=== PATIENT | female | born 1945 | race Caucasian/White ===

== ENCOUNTER → 2016-09-03 | Day surgery (SDC) | payer MEDICARE, OTHER ==
[~2016-09-03] VITALS: Ht 157.5 cm; Wt 58.1 kg
[~2016-09-03] MED LIST: *morphine SULFATE 8 MG/ML PERIprocedure ONLY ONE; AMLO10TA2 PO; ARTIFICIAL TEARS OPTH OINT 3.5 APPLIC/3.5 GM TUBO ONE; ATROPINE SULFATE 1% OPHT SOLN 2 ML BTL ONE; BALANCED SALT SOLN OPHT IRRIG 15 ML BTL ONE; CHLORHEXIDINE GLUCONATE 2 % 1 PACK (2 CLOTHS) TOPICAL SCH; DEXAMETHASONE SOD PHOS 4 MG/ML VIAL ONE; EPINEPHrine HCL (1:1000) 1 MG/ML VIAL ONE; FAMOTIDINE 20 MG/2 ML VIAL ONE; INSULIN HUMAN REGULAR 1,000 UNITS/10 ML VIAL SQ PRN; LACTATED RINGER'S 1000 ML IV SCH; LOSA100T PO; METOPROLOL TARTRATE 25 MG TAB PO PRN; MIDAZOLAM HCL 2 MG/2 ML VIAL ONE; PHENYLEPH/NS 1000 MCG/10 ML SYR IV ONE; POVIDONE IODINE 5% (ANTISEPSIS KIT) 4 APPLICATIONS EACH NARE SCH; PROPOFOL 200 MG/20 ML AMP IV ONE; SODIUM CHLORID 0.9% 500 ML IV SCH; STERILE WATER FOR INJ 20 ML VIAL ONE; TOBRAMYCIN/DEXAMETHASONE OPTH OINT 3.5 GM TUBE ONE; TRIAMCINOLONE ACETONIDE/PF 40 MG/ML OPTH VIAL ONE; ceFAZolin INJ 1,000 MG VIAL ONE
[2016-09-03 09:42] VITALS: BP 125/66; PULSE 72; RESP 16; TEMP 98; O2SAT 97
[2016-09-03 11:35] LABS: AUTOMATED NEUTROPHIL # 3.1 TH/MM3 (1.8-7.7); HEMATOCRIT 39.6 % (35.0-46.0); HEMO FLAGS DIFF FINAL; LYMPH % 23.4 % (9.0-44.0); LYMPHOCYTE # 1.1 TH/MM3 (1.0-4.8); MEAN CELL VOLUME 103.5 FL (80.0-100.0); MEAN CORPUSCULAR HEMOGLOBIN 35.1 PG (27.0-34.0); MEAN CORPUSCULAR HGB CONC 33.9 % (32.0-36.0); MONO % 9.4 % (0.0-8.0); NEUT % 65.2 % (16.0-70.0); PLATELET COUNT 249 TH/MM3 (150-450); RED BLOOD COUNT 3.82 MIL/MM3 (4.00-5.30); RED CELL DISTRIBUTION WIDTH 13.1 % (11.6-17.2); WHITE BLOOD COUNT 4.8 TH/MM3 (4.0-11.0)
[2016-09-03] MEDS: CYCLOPENTOLATE HCL 1% OPHT SOLN 2 ML BTL LEFT EYE SCH ×4 (12:43→13:30)
[2016-09-03] MEDS: PHENYLEPHRINE HCL 2.5% OPTH SOLN 2 ML BTL LEFT EYE SCH ×4 (12:44→13:30)
[2016-09-03] MEDS: TROPICAMIDE 1% OPTH SOLN 2 ML BTL LEFT EYE SCH ×4 (12:45→13:30)
[2016-09-03] MEDS: ATROPINE SULFATE 1% OPHT SOLN 5 ML BTL LEFT EYE SCH ×4 (12:46→13:30)
--- NOTE | 2016-09-03 13:43 | EKG ---
Date Performed: 09/03/2016 Time Performed: 10:01:01 PTAGE: 71 years EKG: Sinus rhythm POSSIBLE LEFT ATRIAL ENLARGEMENT BORDERLINE LEFT AXIS DEVIATION INCOMPLETE RIGHT BUNDLE BRANCH BLOCK BORDERLINE ECG NO PREVIOUS TRACING DOCTOR: Wu Sauceda Interpretating Date/Time 09/03/2016 13:42:22
[2016-09-03 17:00] VITALS: BP 145/79; PULSE 75; RESP 16; TEMP 98; O2SAT 99
--- NOTE | 2016-09-07 09:05 | MP ---
cc: SHANIQUE SPARROW MD DATE OF SURGERY 09/03/2016 PREOPERATIVE DIAGNOSIS Rhegmatogenous retinal detachment left eye. POSTOPERATIVE DIAGNOSIS Rhegmatogenous retinal detachment left eye. PROCEDURE Trans pars plana vitrectomy with endolaser photocoagulation and air-fluid exchange, left eye. SURGEON Dr. Grace Sparrow ANESTHESIA General laryngeal mask anesthesia. INDICATIONS Ms. 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 She initially underwent an attempt at a pneumatic retinopexy with a gas ____ injected in the office. However, that failed and her detachment progressed further down the temporal side of the periphery. It was decided that she should undergo vitrectomy gas fluid exchange, laser photocoagulation and she wished to proceed. Informed consent was obtained including the fact that a vitrectomy and gas bubble may accelerate her cataract formation. She was brought to [facility] operating room one and placed on the operating table. Appropriate anesthesia monitoring devices were applied and she was placed under general anesthesia using the laryngeal mask. The left eye was identified as the operative site and then prepped and draped in the usual sterile fashion. A lid speculum was placed. The microscope was brought around and adjusted. At this time, an appropriate time-out was called with the surgical team agreeing to the surgical site and planned procedure. Using the Regan 23-gauge vitrectomy system, the trocar cannulas were placed 4 mm posterior to the limbus. The first one was placed at approximately 3:15 o'clock after first displacing the conjunctiva and with a beveled entrance. Once verified in the posterior chamber, an infusion cannula was affixed to it and was turned on. Two additional trocar cannulas were placed in similar fashion at 10 and 2 o'clock. Using the Endoilluminator light pipe and vitrectomy cutter and the BIOM wide-angle viewing system, a core and peripheral vitrectomy was carried out. Traction on the lattice and retinal break at about 12:30 to 1 o'clock was relieved. The retina was then flattened under Perfluoron and laser photocoagulation was placed between approximately 12 o'clock down around to 7:30 to 8 o'clock. A total of 1546 laser spots were placed using both the endolaser probe with a power of 200 milliwatts and 0.1-second exposure and the laser indirect delivery system with a power of 400 milliwatts and 0.15-second exposure. The Perfluoron was then exchanged for air. The air was then exchanged for a 24% mixture of SF6. The trocar cannulas were then removed one by one with tamponade of the site with a cotton swab leaving the eye formed with good pressure and no visible air leaks. Diathermy was done to the conjunctival wound overlying the sclerostomies. Atropine drops were placed on the cornea followed by subconjunctival actions of Ancef 2 mg in 0.5 ml and Ancef 125 mg in 0.5 ml. Kid speculum was removed. The patient was undraped. TobraDex ointment was placed on the cornea and the left eye was patched and shielded. The patient had the laryngeal mass removed in the room and was returned to recovery in good condition laying on her right side. When awake and alert, she will be asked to position face-down. MD FITO Olvera/ /3:53 PM /9:04 AM
== END | disposition home or self-care (01) ==
LOC: HSDC 08:46
PROVIDERS: ATTEND Ophthalmology
DX: H33.012 Retinal detachment with single break, left eye (principal); I45.10 Unspecified right bundle-branch block
CPT/HCPCS: 00145; 67108; 85025; 93005; J0171; J0690; J1100; J2250; J2270; J2370; J3010; J7120; J3300